=== PATIENT | male | born 1950 | race African-American/Black ===

== ENCOUNTER 2021-04-21 14:27 | Inpatient (IN) ==
[2021-04-21] MEDS ORDERED: Ondansetron ODT 4 mg TAB 4 MG TAB PO ONE (14:42)
[2021-04-21 16:42] LABS: ABS Lymphocytes 0.1 10^3/ul (1.0-4.8); ABS Monocytes 0.4 10^3/ul (0-0.8); ABS Neutrophils 10.6 10^3/ul (1.5-7.7); Hematocrit 39 % (42-52); Hemoglobin 11.4 g/dL (14.0-18.0); Lymphocyte % 0.8 %; Mean Corpuscular HGB Conc 29 g/dL (31-36); Mean Corpuscular Hemoglobin 32 pg (27-31); Mean Corpuscular Volume 109 fL (80-94); Mean Platelet Volume 10.6 fL (7.4-10.4); Platelet Count 266 10^3/uL (150-450); Red Blood Count 3.61 10^6 /uL (4.18-5.48); Red Cell Distribution Width 21 % (10-15); White Blood Count 11.1 10^3/uL (3.5-10.8)
[2021-04-21 16:43] LABS: Albumin 2.9 g/dL (3.2-5.2); Calcium 8.4 mg/dL (8.6-10.3); Potassium 4.9 mmol/L (3.5-5.0); Total Bilirubin 0.7 mg/dL (0.2-1.0)
[2021-04-21 16:49] LABS: Albumin/Globulin Ratio 0.6 (1-3); Globulin 5.1 g/dL (2-4); eGFR CKD-EPI 32.5 (>60)
[2021-04-21] MEDS ORDERED: Clindamycin 900 MG/D5W BAG 900 MG/50 ML BAG IVPB ONE (16:49)
[2021-04-21] MEDS ORDERED: NS 0.9% 1000 ml BAG 1,000 ML IV ONE (16:54)
[2021-04-21] MEDS ORDERED: Lactated Ringers 1000 ml BAG 1,000 ML IV ONE (17:34)
[2021-04-21] MEDS ORDERED: Insulin Infusion 100unit/100mL 100 UNIT/100 ML BAG IV ONE (17:36)
[2021-04-21 17:51] LABS: Venous Bicarbonate HCO3 19.3 mmol/L (24-28)
[2021-04-21] MEDS ORDERED: Dextrose 50% Syringe 50 ml 25 GM/50 ML SYRINGE IV PUSH PRN (18:49)
[2021-04-21 18:53] LABS: Magnesium 3.1 mg/dL (1.9-2.7)
[2021-04-21] MEDS ORDERED: Acetaminophen PED 160 mg/5 ml UDC PO PRN (18:53)
[2021-04-21] MEDS ORDERED: Albuterol HFA INHALER 8 gm MDI INH PRN (18:53)
[2021-04-21] MEDS ORDERED: Polyethylene Glycol 3350 BTL 238 GM BTL PO PRN (18:53)
[2021-04-21 18:59] LABS: Phosphorus 3.3 mg/dL (2.5-5.0)
[2021-04-21] MEDS ORDERED: Polyethylene Glycol 3350 17 GM PACKET PO PRN (19:01)
[2021-04-21 20:37] LABS: PCO2 Arterial 31 mmHg (35-45); PO2 Arterial 86 mmHg (80-100)
[2021-04-21] MEDS ORDERED: Carbidopa/Levodop 25/100 MG TAB PO SCH (21:00)
[2021-04-21] MEDS ORDERED: Insulin Infusion 100unit/100mL 100 UNIT/100 ML BAG IV SCH (22:00)
[2021-04-21 22:10] LABS: Creatine Kinase 49 U/L (10-223)
[2021-04-21 22:15] LABS: Troponin I 1.04 ng/mL (<0.03)
[2021-04-21] MEDS: GLUTAMINE PO SCH (22:36)
[2021-04-21] MEDS: [UNRECOGNIZED DRUG - OTHER] PO SCH (22:36)
[2021-04-21] MEDS: NON FORMULARY MED (Menthol-Zinc Oxide [Calmoseptine] 0.44-20.6 % Ointment) TOPICAL SCH (22:36)
[2021-04-21] MEDS: ARGININE PO SCH (22:36)
[2021-04-21 22:37] LABS: CO2 Carbon Dioxide 18 mmol/L (22-32); Calcium 7.7 mg/dL (8.6-10.3); Chloride 97 mmol/L (101-111); Sodium 125 mmol/L (135-145)
[2021-04-21 22:38] LABS: Glucose 1089 mg/dL (70-100)
[2021-04-21 22:44] LABS: TSH Ultra Thyroid Stim Horm 1.24 mcIU/mL (0.34-5.60)
[2021-04-21 22:48] LABS: Urine Appearance Cloudy; Urine Bilirubin Negative (Negative); Urine Blood Negative (Negative); Urine Color Yellow; Urine Glucose 3+(>=500 mg/dL) (Negative); Urine Ketones Negative (Negative); Urine Nitrite Negative (Negative); Urine Protein Negative (Negative); Urine Specific Gravity 1.018 (1.002-1.030); Urine Urobilinogen Negative (Negative)
[2021-04-21 22:59] LABS: Blood Urea Nitrogen 215 mg/dL (6-24)
[2021-04-21 23:07] LABS: Anion Gap 10 mmol/L (2-11)
[2021-04-21 23:08] LABS: Glucose Confirmatory 1089 mg/dL (70-100)
[2021-04-21] MEDS: Enoxaparin 30 MG/0.3 ML SYR SUBCUT SCH (23:20)
[2021-04-21 23:22] LABS: Glucose Confirmatory 1072 mg/dL (70-100)
[2021-04-21 23:23] LABS: Phosphorus 3.1 mg/dL (2.5-5.0)
[2021-04-21] MEDS: Lactated Ringers 1000 ml BAG 1,000 ML IV SCH (23:29)
[2021-04-22 00:22] LABS: Glucose Confirmatory 943 mg/dL (70-100)
[2021-04-22 01:28] LABS: Glucose Confirmatory 919 mg/dL (70-100)
[2021-04-22 02:14] LABS: Anion Gap 11 mmol/L (2-11); CO2 Carbon Dioxide 20 mmol/L (22-32); Calcium 7.6 mg/dL (8.6-10.3); Chloride 98 mmol/L (101-111); Magnesium 2.8 mg/dL (1.9-2.7); Phosphorus 3.3 mg/dL (2.5-5.0); Potassium 4.2 mmol/L (3.5-5.0); Sodium 129 mmol/L (135-145); eGFR CKD-EPI 31.3 (>60)
[2021-04-22 02:31] LABS: Blood Urea Nitrogen 206 mg/dL (6-24)
[2021-04-22 02:32] LABS: Glucose 897 mg/dL (70-100); Glucose Confirmatory 897 mg/dL (70-100)
[2021-04-22 03:15] LABS: Troponin I 1.13 ng/mL (<0.03)
[2021-04-22 03:26] LABS: Glucose Confirmatory 816 mg/dL (70-100)
[2021-04-22 04:10] LABS: Troponin I 1.09 ng/mL (<0.03)
[2021-04-22 04:33] LABS: Glucose Confirmatory 779 mg/dL (70-100)
[2021-04-22 05:29] LABS: Glucose Confirmatory 723 mg/dL (70-100)
[2021-04-22] MEDS ORDERED: Piperacillin/Tazobac ADVAN 3.375 GM in NS 0.9% 100 ml BAG 100 ML IV ONE (05:34)
[2021-04-22 05:45] LABS: ABS Lymphocytes 0.1 10^3/ul (1.0-4.8); ABS Monocytes 0.5 10^3/ul (0-0.8); ABS Neutrophils 16.9 10^3/ul (1.5-7.7); Hematocrit 29 % (42-52); Hemoglobin 8.9 g/dL (14.0-18.0); Lymphocyte % 0.8 %; Mean Corpuscular HGB Conc 31 g/dL (31-36); Mean Corpuscular Hemoglobin 31 pg (27-31); Mean Corpuscular Volume 100 fL (80-94); Platelet Count 270 10^3/uL (150-450); Red Blood Count 2.87 10^6 /uL (4.18-5.48); Red Cell Distribution Width 19 % (10-15); White Blood Count 17.6 10^3/uL (3.5-10.8)
[2021-04-22] MEDS ORDERED: Zosyn per Pharmacy NOTE FOLLOW UP SCH (06:00)
[2021-04-22 06:03] LABS: Anion Gap 11 mmol/L (2-11); CO2 Carbon Dioxide 22 mmol/L (22-32); Chloride 100 mmol/L (101-111); Magnesium 2.9 mg/dL (1.9-2.7); Potassium 4.2 mmol/L (3.5-5.0); Sodium 133 mmol/L (135-145)
[2021-04-22 06:09] LABS: Phosphorus 3.3 mg/dL (2.5-5.0); eGFR CKD-EPI 31.3 (>60)
[2021-04-22 06:17] LABS: Glucose 669 mg/dL (70-100)
[2021-04-22] MEDS: Lactated Ringers 1000 ml BAG 1,000 ML IV SCH ×2 (06:43→14:19)
[2021-04-22 06:53] LABS: Folate > 20.00 ng/mL (5.90-24.80)
[2021-04-22 06:54] LABS: Vitamin B12 > 1450 pg/mL (180-914)
[2021-04-22] MEDS: ARGININE PO SCH ×2 (07:17→22:56)
[2021-04-22] MEDS: NON FORMULARY MED (Menthol-Zinc Oxide [Calmoseptine] 0.44-20.6 % Ointment) TOPICAL SCH ×2 (07:17→23:00)
[2021-04-22] MEDS: GLUTAMINE PO SCH ×2 (07:17→22:56)
[2021-04-22] MEDS: [UNRECOGNIZED DRUG - OTHER] PO SCH ×2 (07:17→22:56)
[2021-04-22] MEDS ORDERED: Polyethylene Glycol 3350 17 GM PACKET PEG TUBE PRN (07:19)
[2021-04-22 07:26] LABS: Glucose Confirmatory 611 mg/dL (70-100)
[2021-04-22] MEDS: Carbidopa/Levodop 25/100 MG TAB PEG TUBE SCH ×3 (07:27→22:57)
[2021-04-22 07:37] LABS: Blood Urea Nitrogen 204 mg/dL (6-24)
[2021-04-22 08:06] LABS: Glucose Confirmatory 574 mg/dL (70-100)
[2021-04-22] MEDS: Fluticasone NASAL SPRAY 50MCG 16 gm SPRAY BTL INTRANASAL SCH (08:08)
[2021-04-22] MEDS ORDERED: HONEY TOPICAL SCH (09:00)
[2021-04-22] MEDS ORDERED: Pantoprazole VIAL 40 MG VIAL IV SCH (09:00)
[2021-04-22 09:09] LABS: Glucose Confirmatory 501 mg/dL (70-100)
[2021-04-22 10:15] LABS: Calcium 7.8 mg/dL (8.6-10.3); Magnesium 2.7 mg/dL (1.9-2.7); Potassium 3.8 mmol/L (3.5-5.0); eGFR CKD-EPI 32.9 (>60)
[2021-04-22] MEDS: ZOSYN 3.375 GM Q8H per EXTENDED INFUSION IV SCH ×2 (10:43→16:57)
[2021-04-22 11:07] LABS: Glucose Confirmatory 403 mg/dL (70-100)
[2021-04-22] MEDS ORDERED: Perflutren Lipid Microsphere 3 ML VIAL ONE (12:57)
[2021-04-22 13:50] LABS: Calcium 7.6 mg/dL (8.6-10.3); Magnesium 2.6 mg/dL (1.9-2.7); Phosphorus 2.8 mg/dL (2.5-5.0); Potassium 3.8 mmol/L (3.5-5.0); eGFR CKD-EPI 34.2 (>60)
[2021-04-22] MEDS ORDERED: Potassium Chloride LIQUID 20 MEQ/15 ML LIQUID PO ONE (14:22)
[2021-04-22] MEDS ORDERED: Insulin GLARGINE 100 un/ml 10 ml VIAL SUBCUT SCH (18:00)
[2021-04-22 18:09] LABS: Calcium 7.7 mg/dL (8.6-10.3); Magnesium 2.6 mg/dL (1.9-2.7); Phosphorus 2.6 mg/dL (2.5-5.0); Potassium 4.7 mmol/L (3.5-5.0)
[2021-04-22] MEDS: Insulin GLARGINE 100 un/ml 10 ml VIAL SUBCUT SCH (18:14)
[2021-04-22 18:24] LABS: Hematocrit 27 % (42-52); Hemoglobin 8.4 g/dL (14.0-18.0); Mean Corpuscular HGB Conc 32 g/dL (31-36); Mean Corpuscular Hemoglobin 31 pg (27-31); Mean Corpuscular Volume 96 fL (80-94); Mean Platelet Volume 9.6 fL (7.4-10.4); Platelet Count 284 10^3/uL (150-450); Red Blood Count 2.75 10^6 /uL (4.18-5.48); Red Cell Distribution Width 18 % (10-15); White Blood Count 17.6 10^3/uL (3.5-10.8)
[2021-04-22] MEDS ORDERED: Pantoprazole VIAL 40 MG VIAL IV ONE (19:00)
[2021-04-22] MEDS ORDERED: Dextrose 50% Syringe 50 ml 25 GM/50 ML SYRINGE IV PUSH PRN (20:39)
[2021-04-22] MEDS: Pantoprazole 80 mg in NS BAG 80 MG/250 ML BAG IV SCH (22:43)
[2021-04-22] MEDS: Enoxaparin 30 MG/0.3 ML SYR SUBCUT SCH (22:56)
[2021-04-23] MEDS: ZOSYN 3.375 GM Q8H per EXTENDED INFUSION IV SCH ×3 (02:49→18:02)
[2021-04-23 05:35] LABS: ABS Lymphocytes 0.3 10^3/ul (1.0-4.8); ABS Monocytes 0.7 10^3/ul (0-0.8); ABS Neutrophils 14.4 10^3/ul (1.5-7.7); Corrected Retic Count 1.4 % (0.5-1.5); Hematocrit 26 % (42-52); Hematocrit for Retic CNT 26 % (42-52); Hemoglobin 8.3 g/dL (14.0-18.0); Immature Retic Fraction 0.52; Mean Corpuscular HGB Conc 32 g/dL (31-36); Mean Corpuscular Hemoglobin 31 pg (27-31); Mean Corpuscular Volume 97 fL (80-94); Mean Platelet Volume 10.1 fL (7.4-10.4); Nucleated Red Blood Cells % 0.1; Platelet Count 256 10^3/uL (150-450); RBC Retic Count 2.66 10^6/uL (4.18-5.48); Red Blood Count 2.66 10^6 /uL (4.18-5.48); Red Cell Distribution Width 18 % (10-15); White Blood Count 15.4 10^3/uL (3.5-10.8)
[2021-04-23 05:56] LABS: Albumin 2.6 g/dL (3.2-5.2); Albumin/Globulin Ratio 0.6 (1-3); Calcium 7.9 mg/dL (8.6-10.3); Globulin 4.3 g/dL (2-4); Magnesium 2.7 mg/dL (1.9-2.7); Phosphorus 3.6 mg/dL (2.5-5.0); Total Bilirubin 0.7 mg/dL (0.2-1.0); Total Protein 6.9 g/dL (6.4-8.9); eGFR CKD-EPI 29.1 (>60)
[2021-04-23 06:09] LABS: Potassium 5.2 mmol/L (3.5-5.0)
[2021-04-23 06:25] LABS: Ferritin 698.3 ng/mL (24-336)
[2021-04-23] MEDS: Carbidopa/Levodop 25/100 MG TAB PEG TUBE SCH ×3 (09:19→20:06)
[2021-04-23] MEDS: Fluticasone NASAL SPRAY 50MCG 16 gm SPRAY BTL INTRANASAL SCH (09:20)
[2021-04-23] MEDS ORDERED: Lactated Ringers 1000 ml BAG 1,000 ML IV ONE (09:34)
[2021-04-23] MEDS: Pantoprazole VIAL 40 MG VIAL IV SCH ×2 (09:37→20:06)
[2021-04-23] MEDS: NON FORMULARY MED (Menthol-Zinc Oxide [Calmoseptine] 0.44-20.6 % Ointment) TOPICAL SCH ×2 (10:10→20:08)
[2021-04-23] MEDS ORDERED: Midazolam 2 mg/2 ml VIAL 1 mg/ml 2 ml VIAL (2 mg) ONE (11:21)
[2021-04-23] MEDS ORDERED: Midazolam 2 mg/2 ml VIAL 1 mg/ml 2 ml VIAL (2 mg) IV SLOW PU ONE (11:44)
[2021-04-23] MEDS: Pantoprazole 80 mg in NS BAG 80 MG/250 ML BAG IV SCH (12:50)
[2021-04-23] MEDS ORDERED: Lorazepam PYXIS KEY PRN (12:55)
[2021-04-23] MEDS ORDERED: LORazepam 2 mg VIAL 1 ml IV PUSH PRN (12:55)
[2021-04-23] MEDS ORDERED: Lorazepam PYXIS KEY ONE (13:00)
[2021-04-23] MEDS ORDERED: LORazepam 2 mg VIAL 1 ml ONE (13:01)
[2021-04-23] MEDS ORDERED: Heparin 1,000 UNIT/ML 10 ml (10,000 UNITS) CATHLAB/DIALYSIS DIALYSIS ONE (14:00)
[2021-04-23 14:07] LABS: Hepatitis B Surface Antigen Nonreactive (Nonreactive)
[2021-04-23 14:24] LABS: Hepatitis B Surface Ab Not Immune (Immune)
[2021-04-23] MEDS ORDERED: Desmopressin Acetate 20 MCG in NS 0.9% 50 ML 50 ML IVPB ONE (16:00)
[2021-04-23] MEDS: Insulin GLARGINE 100 un/ml 10 ml VIAL SUBCUT SCH (18:16)
[2021-04-23] MEDS: Enoxaparin 30 MG/0.3 ML SYR SUBCUT SCH (20:07)
[2021-04-23 20:32] LABS: Calcium 7.6 mg/dL (8.6-10.3); Magnesium 2.4 mg/dL (1.9-2.7); Phosphorus 3.4 mg/dL (2.5-5.0); eGFR CKD-EPI 41.3 (>60)
[2021-04-24] MEDS: ZOSYN 3.375 GM Q8H per EXTENDED INFUSION IV SCH ×2 (01:57→09:48)
[2021-04-24 04:28] LABS: ABS Lymphocytes 0.2 10^3/ul (1.0-4.8); ABS Monocytes 0.4 10^3/ul (0-0.8); ABS Neutrophils 7.7 10^3/ul (1.5-7.7); Hematocrit 24 % (42-52); Hemoglobin 7.8 g/dL (14.0-18.0); Mean Corpuscular HGB Conc 32 g/dL (31-36); Mean Corpuscular Hemoglobin 31 pg (27-31); Mean Corpuscular Volume 97 fL (80-94); Mean Platelet Volume 9.8 fL (7.4-10.4); Platelet Count 242 10^3/uL (150-450); Red Blood Count 2.48 10^6 /uL (4.18-5.48); Red Cell Distribution Width 19 % (10-15); White Blood Count 8.3 10^3/uL (3.5-10.8)
[2021-04-24 04:44] LABS: Calcium 7.6 mg/dL (8.6-10.3); Magnesium 2.5 mg/dL (1.9-2.7); Phosphorus 3.8 mg/dL (2.5-5.0); Potassium 4.2 mmol/L (3.5-5.0)
[2021-04-24] MEDS: Pantoprazole VIAL 40 MG VIAL IV SCH ×2 (08:08→20:03)
[2021-04-24] MEDS: Carbidopa/Levodop 25/100 MG TAB PEG TUBE SCH ×3 (08:09→20:03)
[2021-04-24] MEDS: Fluticasone NASAL SPRAY 50MCG 16 gm SPRAY BTL INTRANASAL SCH (08:10)
[2021-04-24] MEDS: NON FORMULARY MED (Menthol-Zinc Oxide [Calmoseptine] 0.44-20.6 % Ointment) TOPICAL SCH ×2 (08:11→20:31)
[2021-04-24] MEDS ORDERED: Heparin *DIALYSIS* ONLY 1,000 UNITS/ML VIAL DIALYSIS ONE (15:00)
[2021-04-24] MEDS: Insulin GLARGINE 100 un/ml 10 ml VIAL SUBCUT SCH (17:38)
[2021-04-24] MEDS ORDERED: Insulin GLARGINE 100 un/ml 10 ml VIAL SUBCUT SCH (21:00)
[2021-04-24] MEDS: ZOSYN 3.375 GM Q12H per EXTENDED INFUSION IV SCH (22:53)
[2021-04-25 01:03] LABS: Hematocrit 28 % (42-52); Hemoglobin 9.2 g/dL (14.0-18.0); Mean Corpuscular HGB Conc 33 g/dL (31-36); Mean Corpuscular Hemoglobin 31 pg (27-31); Mean Corpuscular Volume 94 fL (80-94); Platelet Count 269 10^3/uL (150-450); Red Blood Count 2.94 10^6 /uL (4.18-5.48); Red Cell Distribution Width 20 % (10-15); White Blood Count 12.8 10^3/uL (3.5-10.8)
[2021-04-25 05:30] LABS: Hematocrit 28 % (42-52); Hemoglobin 9.1 g/dL (14.0-18.0); Mean Corpuscular HGB Conc 33 g/dL (31-36); Mean Corpuscular Hemoglobin 31 pg (27-31); Mean Corpuscular Volume 94 fL (80-94); Mean Platelet Volume 9.9 fL (7.4-10.4); Platelet Count 243 10^3/uL (150-450); Red Blood Count 2.94 10^6 /uL (4.18-5.48); Red Cell Distribution Width 20 % (10-15); White Blood Count 11.5 10^3/uL (3.5-10.8)
[2021-04-25 05:50] LABS: Calcium 7.3 mg/dL (8.6-10.3); Magnesium 2.2 mg/dL (1.9-2.7); Phosphorus 2.8 mg/dL (2.5-5.0); Potassium 3.3 mmol/L (3.5-5.0)
[2021-04-25] MEDS: Insulin GLARGINE 100 un/ml 10 ml VIAL SUBCUT SCH ×2 (05:59→17:28)
[2021-04-25] MEDS: Carbidopa/Levodop 25/100 MG TAB PEG TUBE SCH ×3 (09:44→20:11)
[2021-04-25] MEDS: NON FORMULARY MED (Menthol-Zinc Oxide [Calmoseptine] 0.44-20.6 % Ointment) TOPICAL SCH ×2 (09:45→20:12)
[2021-04-25] MEDS: Fluticasone NASAL SPRAY 50MCG 16 gm SPRAY BTL INTRANASAL SCH (09:45)
[2021-04-25] MEDS: ZOSYN 3.375 GM Q12H per EXTENDED INFUSION IV SCH ×2 (09:45→21:58)
[2021-04-25] MEDS: Pantoprazole VIAL 40 MG VIAL IV SCH ×2 (09:45→10:17)
[2021-04-25 15:11] LABS: % Iron Saturation 13 % (14 - 50); Total Iron Binding Capacity 192 mcg/dL (250 - 400)
[2021-04-26 05:37] LABS: ABS Lymphocytes 0.2 10^3/ul (1.0-4.8); ABS Monocytes 0.6 10^3/ul (0-0.8); ABS Neutrophils 10.7 10^3/ul (1.5-7.7); Eosinophil % 0.2 %; Hematocrit 28 % (42-52); Hemoglobin 9.1 g/dL (14.0-18.0); Mean Corpuscular HGB Conc 33 g/dL (31-36); Mean Corpuscular Hemoglobin 31 pg (27-31); Mean Corpuscular Volume 94 fL (80-94); Mean Platelet Volume 9.8 fL (7.4-10.4); Platelet Count 251 10^3/uL (150-450); Red Blood Count 2.94 10^6 /uL (4.18-5.48); Red Cell Distribution Width 20 % (10-15); White Blood Count 11.6 10^3/uL (3.5-10.8)
[2021-04-26 05:50] LABS: Calcium 7.5 mg/dL (8.6-10.3); Potassium 3.2 mmol/L (3.5-5.0); eGFR CKD-EPI 42.2 (>60)
[2021-04-26] MEDS: Insulin GLARGINE 100 un/ml 10 ml VIAL SUBCUT SCH ×2 (06:17→17:53)
[2021-04-26] MEDS: Pantoprazole VIAL 40 MG VIAL IV SCH (08:36)
[2021-04-26] MEDS: Carbidopa/Levodop 25/100 MG TAB PEG TUBE SCH ×3 (08:46→20:19)
[2021-04-26] MEDS: ZOSYN 3.375 GM Q12H per EXTENDED INFUSION IV SCH ×2 (08:46→22:59)
[2021-04-26] MEDS: Fluticasone NASAL SPRAY 50MCG 16 gm SPRAY BTL INTRANASAL SCH (08:53)
[2021-04-26] MEDS: NON FORMULARY MED (Menthol-Zinc Oxide [Calmoseptine] 0.44-20.6 % Ointment) TOPICAL SCH ×2 (08:53→20:19)
[2021-04-26] MEDS ORDERED: KCL 20 MEQ/100 ML IVPREMIX 20 MEQ/100 ML BAG IV SCH (18:00)
[2021-04-27 04:57] LABS: ABS Eosinophils 0.1 10^3/ul (0-0.6); ABS Lymphocytes 0.2 10^3/ul (1.0-4.8); ABS Monocytes 0.7 10^3/ul (0-0.8); ABS Neutrophils 11.3 10^3/ul (1.5-7.7); Eosinophil % 0.5 %; Hematocrit 28 % (42-52); Hemoglobin 9.2 g/dL (14.0-18.0); Lymphocyte % 1.9 %; Mean Corpuscular HGB Conc 32 g/dL (31-36); Mean Corpuscular Hemoglobin 31 pg (27-31); Mean Corpuscular Volume 95 fL (80-94); Platelet Count 245 10^3/uL (150-450); Red Blood Count 2.99 10^6 /uL (4.18-5.48); Red Cell Distribution Width 20 % (10-15); White Blood Count 12.3 10^3/uL (3.5-10.8)
[2021-04-27 05:12] LABS: Calcium 7.5 mg/dL (8.6-10.3); Potassium 3.2 mmol/L (3.5-5.0); eGFR CKD-EPI 40.5 (>60)
[2021-04-27] MEDS: Insulin GLARGINE 100 un/ml 10 ml VIAL SUBCUT SCH ×2 (06:58→17:33)
[2021-04-27] MEDS: Pantoprazole VIAL 40 MG VIAL IV SCH (08:33)
[2021-04-27] MEDS: Fluticasone NASAL SPRAY 50MCG 16 gm SPRAY BTL INTRANASAL SCH (08:33)
[2021-04-27] MEDS: Carbidopa/Levodop 25/100 MG TAB PEG TUBE SCH ×3 (08:33→22:44)
[2021-04-27] MEDS: ZOSYN 3.375 GM Q12H per EXTENDED INFUSION IV SCH ×2 (08:33→22:41)
[2021-04-27] MEDS: NON FORMULARY MED (Menthol-Zinc Oxide [Calmoseptine] 0.44-20.6 % Ointment) TOPICAL SCH ×2 (08:33→22:11)
[2021-04-27] MEDS ORDERED: Potassium Chlor 20 meq TAB.ER PO SCH (09:00)
[2021-04-27] MEDS ORDERED: Potassium Chloride LIQUID 20 MEQ/15 ML LIQUID PEG TUBE SCH (09:00)
[2021-04-27] MEDS ORDERED: Bumetanide IV 0.25 MG/ML 4 ml VIAL (1 mg) SLOW PUSH ONE (10:37)
[2021-04-27] MEDS ORDERED: Potassium Chloride LIQUID 20 MEQ/15 ML LIQUID PO SCH (15:00)
[2021-04-27] MEDS: Heparin 5000 UNITS/ML 1 mL VIAL SUBCUT SCH (22:44)
[2021-04-27] MEDS: Bumetanide IV 0.25 MG/ML 4 ml VIAL (1 mg) SLOW PUSH SCH (22:46)
[2021-04-27 23:05] LABS: Calcium 7.7 mg/dL (8.6-10.3); Magnesium 2.2 mg/dL (1.9-2.7); Potassium 3.4 mmol/L (3.5-5.0); eGFR CKD-EPI 37.5 (>60)
[2021-04-27 23:26] LABS: TSH Ultra Thyroid Stim Horm 1.97 mcIU/mL (0.34-5.60)
[2021-04-28] MEDS: KCL 10 MEQ/50 ML IVPREMIX 10 MEQ/50 ML BAG IV SCH ×3 (01:00→04:10)
[2021-04-28] MEDS: Insulin GLARGINE 100 un/ml 10 ml VIAL SUBCUT SCH ×2 (06:00→17:32)
[2021-04-28 06:09] LABS: Hematocrit 26 % (42-52); Hemoglobin 8.8 g/dL (14.0-18.0); Mean Corpuscular HGB Conc 33 g/dL (31-36); Mean Corpuscular Hemoglobin 32 pg (27-31); Mean Corpuscular Volume 95 fL (80-94); Mean Platelet Volume 9.6 fL (7.4-10.4); Platelet Count 253 10^3/uL (150-450); Red Blood Count 2.77 10^6 /uL (4.18-5.48); Red Cell Distribution Width 20 % (10-15); White Blood Count 10.7 10^3/uL (3.5-10.8)
[2021-04-28 06:29] LABS: Calcium 7.3 mg/dL (8.6-10.3); Magnesium 2.1 mg/dL (1.9-2.7); Phosphorus 3.3 mg/dL (2.5-5.0); Potassium 3.6 mmol/L (3.5-5.0); eGFR CKD-EPI 39.7 (>60)
[2021-04-28] MEDS: NON FORMULARY MED (Menthol-Zinc Oxide [Calmoseptine] 0.44-20.6 % Ointment) TOPICAL SCH ×2 (09:40→22:56)
[2021-04-28] MEDS: ZOSYN 3.375 GM Q12H per EXTENDED INFUSION IV SCH ×2 (10:00→22:24)
[2021-04-28] MEDS: Pantoprazole VIAL 40 MG VIAL IV SCH (10:02)
[2021-04-28] MEDS: Bumetanide IV 0.25 MG/ML 4 ml VIAL (1 mg) SLOW PUSH SCH ×2 (10:03→22:29)
[2021-04-28] MEDS: Heparin 5000 UNITS/ML 1 mL VIAL SUBCUT SCH ×2 (10:04→22:29)
[2021-04-28] MEDS: Carbidopa/Levodop 25/100 MG TAB PEG TUBE SCH ×3 (10:04→22:29)
[2021-04-28] MEDS: Potassium Chloride LIQUID 20 MEQ/15 ML LIQUID PO SCH (10:04)
[2021-04-28] MEDS: Fluticasone NASAL SPRAY 50MCG 16 gm SPRAY BTL INTRANASAL SCH (10:42)
[2021-04-29] MEDS: Insulin GLARGINE 100 un/ml 10 ml VIAL SUBCUT SCH ×2 (05:55→18:17)
[2021-04-29 06:25] LABS: ABS Eosinophils 0.1 10^3/ul (0-0.6); ABS Lymphocytes 0.4 10^3/ul (1.0-4.8); ABS Monocytes 0.8 10^3/ul (0-0.8); ABS Neutrophils 9.3 10^3/ul (1.5-7.7); Eosinophil % 0.5 %; Hematocrit 27 % (42-52); Hemoglobin 8.8 g/dL (14.0-18.0); Lymphocyte % 3.9 %; Mean Corpuscular HGB Conc 33 g/dL (31-36); Mean Corpuscular Hemoglobin 31 pg (27-31); Mean Corpuscular Volume 96 fL (80-94); Mean Platelet Volume 9.4 fL (7.4-10.4); Platelet Count 249 10^3/uL (150-450); Red Blood Count 2.81 10^6 /uL (4.18-5.48); Red Cell Distribution Width 21 % (10-15); White Blood Count 10.6 10^3/uL (3.5-10.8)
[2021-04-29 06:42] LABS: Calcium 7.6 mg/dL (8.6-10.3); Potassium 3.8 mmol/L (3.5-5.0); eGFR CKD-EPI 34.6 (>60)
[2021-04-29] MEDS: Carbidopa/Levodop 25/100 MG TAB PEG TUBE SCH ×3 (10:16→21:32)
[2021-04-29] MEDS: Pantoprazole VIAL 40 MG VIAL IV SCH (10:16)
[2021-04-29] MEDS: Heparin 5000 UNITS/ML 1 mL VIAL SUBCUT SCH ×2 (10:16→21:31)
[2021-04-29] MEDS: Potassium Chloride LIQUID 20 MEQ/15 ML LIQUID PO SCH (10:16)
[2021-04-29] MEDS: NON FORMULARY MED (Menthol-Zinc Oxide [Calmoseptine] 0.44-20.6 % Ointment) TOPICAL SCH ×2 (10:17→21:32)
[2021-04-29] MEDS: Nystatin TOP POWDER 15 GM BTL TOPICAL SCH ×3 (12:14→23:23)
[2021-04-29] MEDS: Fluticasone NASAL SPRAY 50MCG 16 gm SPRAY BTL INTRANASAL SCH (15:17)
[2021-04-30 05:35] LABS: ABS Lymphocytes 0.4 10^3/ul (1.0-4.8); ABS Monocytes 0.6 10^3/ul (0-0.8); ABS Neutrophils 6.8 10^3/ul (1.5-7.7); Eosinophil % 0.6 %; Hematocrit 27 % (42-52); Hemoglobin 8.7 g/dL (14.0-18.0); Lymphocyte % 4.9 %; Mean Corpuscular HGB Conc 32 g/dL (31-36); Mean Corpuscular Hemoglobin 31 pg (27-31); Mean Corpuscular Volume 97 fL (80-94); Mean Platelet Volume 9.3 fL (7.4-10.4); Nucleated Red Blood Cells % 0.1; Platelet Count 226 10^3/uL (150-450); Red Blood Count 2.79 10^6 /uL (4.18-5.48); Red Cell Distribution Width 21 % (10-15); White Blood Count 7.9 10^3/uL (3.5-10.8)
[2021-04-30 05:59] LABS: Calcium 7.7 mg/dL (8.6-10.3); Potassium 4.2 mmol/L (3.5-5.0); eGFR CKD-EPI 34.4 (>60)
[2021-04-30] MEDS: NON FORMULARY MED (Menthol-Zinc Oxide [Calmoseptine] 0.44-20.6 % Ointment) TOPICAL SCH ×2 (07:04→22:05)
[2021-04-30] MEDS: Heparin 5000 UNITS/ML 1 mL VIAL SUBCUT SCH ×2 (09:41→22:17)
[2021-04-30] MEDS: Carbidopa/Levodop 25/100 MG TAB PEG TUBE SCH ×3 (09:41→22:17)
[2021-04-30] MEDS: Fluticasone NASAL SPRAY 50MCG 16 gm SPRAY BTL INTRANASAL SCH ×2 (09:41→09:54)
[2021-04-30] MEDS: Pantoprazole VIAL 40 MG VIAL IV SCH (09:41)
[2021-04-30] MEDS: Insulin GLARGINE 100 un/ml 10 ml VIAL SUBCUT SCH (09:54)
[2021-04-30] MEDS: Nystatin TOP POWDER 15 GM BTL TOPICAL SCH ×2 (09:54→22:18)
[2021-04-30] MEDS: Bumetanide IV 0.25 MG/ML 4 ml VIAL (1 mg) SLOW PUSH SCH (22:16)
[2021-05-01 06:30] LABS: ABS Lymphocytes 0.5 10^3/ul (1.0-4.8); ABS Monocytes 0.5 10^3/ul (0-0.8); ABS Neutrophils 6.3 10^3/ul (1.5-7.7); Eosinophil % 0.5 %; Hematocrit 27 % (42-52); Hemoglobin 8.7 g/dL (14.0-18.0); Lymphocyte % 6.2 %; Mean Corpuscular HGB Conc 32 g/dL (31-36); Mean Corpuscular Hemoglobin 31 pg (27-31); Mean Corpuscular Volume 97 fL (80-94); Mean Platelet Volume 9.2 fL (7.4-10.4); Nucleated Red Blood Cells % 0.1; Platelet Count 229 10^3/uL (150-450); Red Cell Distribution Width 20 % (10-15); White Blood Count 7.3 10^3/uL (3.5-10.8)
[2021-05-01 06:37] LABS: Potassium 4.1 mmol/L (3.5-5.0)
[2021-05-01 06:42] LABS: eGFR CKD-EPI 35.9 (>60)
[2021-05-01] MEDS: Pantoprazole VIAL 40 MG VIAL IV SCH (10:08)
[2021-05-01] MEDS: Carbidopa/Levodop 25/100 MG TAB PEG TUBE SCH ×2 (10:09→13:01)
[2021-05-01] MEDS: Bumetanide IV 0.25 MG/ML 4 ml VIAL (1 mg) SLOW PUSH SCH (10:09)
[2021-05-01] MEDS: Insulin GLARGINE 100 un/ml 10 ml VIAL SUBCUT SCH (10:09)
[2021-05-01] MEDS: Heparin 5000 UNITS/ML 1 mL VIAL SUBCUT SCH (10:09)
[2021-05-01] MEDS: Nystatin TOP POWDER 15 GM BTL TOPICAL SCH (10:10)
[2021-05-01] MEDS: NON FORMULARY MED (Menthol-Zinc Oxide [Calmoseptine] 0.44-20.6 % Ointment) TOPICAL SCH (10:10)
[2021-05-01] MEDS: Fluticasone NASAL SPRAY 50MCG 16 gm SPRAY BTL INTRANASAL SCH (10:10)
[2021-05-01 15:53] LABS: Rapid COVID-19 Molecular Detected (Undetected)
[2021-05-01 16:52] VITALS: BP 131/81
== END 2021-05-01 15:40 | DRG 177 ==
LOC: ED 14:27 → EDHOLD 17:48 → SUATTDRO 17:48 → ICU 21:53 → SSU 04-27 19:46
PROVIDERS: ADMIT Internal Medicine; ATTEND Student in an Organized Health Care Education/Training Program

== ENCOUNTER 2021-05-11 12:12 | Inpatient (IN) ==
[2021-05-11 13:36] LABS: ABS Basophils 0.1 10^3/ul (0-0.2); ABS Lymphocytes 0.6 10^3/ul (1.0-4.8); ABS Monocytes 0.7 10^3/ul (0-0.8); ABS Neutrophils 15.4 10^3/ul (1.5-7.7); Eosinophil % 0.1 %; Hematocrit 36 % (42-52); Hemoglobin 11.2 g/dL (14.0-18.0); Lymphocyte % 3.7 %; Mean Corpuscular HGB Conc 32 g/dL (31-36); Mean Corpuscular Hemoglobin 31 pg (27-31); Mean Corpuscular Volume 99 fL (80-94); Mean Platelet Volume 9.4 fL (7.4-10.4); Platelet Count 378 10^3/uL (150-450); Red Blood Count 3.62 10^6 /uL (4.18-5.48); Red Cell Distribution Width 20 % (10-15); White Blood Count 16.9 10^3/uL (3.5-10.8)
[2021-05-11 13:44] LABS: Venous Bicarbonate HCO3 35.7 mmol/L (24-28)
[2021-05-11] MEDS ORDERED: Cefepime 2 GM IV - ED ONCE IV ONE (13:46)
[2021-05-11] MEDS ORDERED: Cefepime 2 GM in NS 0.9% 50 ML 50 ML IVPB ONE (13:46)
[2021-05-11] MEDS ORDERED: Levofloxacin 750 MG IVPREMIX 750 MG/150 ML BAG IVPB ONE (13:46)
[2021-05-11] MEDS ORDERED: Lactated Ringers 1000 ml BAG 1,000 ML IV ONE (13:46)
[2021-05-11 13:49] LABS: Urine Appearance Clear; Urine Bilirubin Negative (Negative); Urine Blood 2+ (Negative); Urine Color Amber; Urine Glucose Negative (Negative); Urine Ketones Negative (Negative); Urine Nitrite Negative (Negative); Urine Protein 2+(100 mg/dL) (Negative); Urine Specific Gravity 1.013 (1.002-1.030); Urine Urobilinogen Negative (Negative)
[2021-05-11 13:51] LABS: INR 1.46 (0.86-1.15)
[2021-05-11 14:03] LABS: Urine Bacteria Absent (Absent); Urine Red Blood Cell 2+(6-10/hpf) (Absent); Urine Squamous Epithelial Cell Present (Absent); Urine White Blood Cell 3+(>20/hpf) (Absent)
[2021-05-11] MEDS ORDERED: NS 0.9% 50 ML 50 ML ONE (14:06)
[2021-05-11 14:09] LABS: ALT 30 U/L (7-52); AST 50 U/L (13-39); Albumin 2.7 g/dL (3.2-5.2); Albumin/Globulin Ratio 0.5 (1-3); Alkaline Phosphatase 141 U/L (35-149); C Reactive Protein 148.01 mg/L (<8.01); CO2 Carbon Dioxide 37 mmol/L (22-32); Calcium 9.3 mg/dL (8.6-10.3); Chloride 111 mmol/L (101-111); Glucose 260 mg/dL (70-100); Total Protein 8.7 g/dL (6.4-8.9); eGFR CKD-EPI 29.8 (>60)
[2021-05-11 14:46] LABS: Anion Gap 8 mmol/L (2-11); Blood Urea Nitrogen 181 mg/dL (6-24); Sodium 156 mmol/L (135-145)
[2021-05-11] MEDS ORDERED: Acetaminophen PED 160 mg/5 ml UDC FEED TUBE PRN (15:57)
[2021-05-11] MEDS ORDERED: Albuterol HFA INHALER 8 gm MDI INH PRN (15:57)
[2021-05-11] MEDS ORDERED: Dextrose 50% Syringe 50 ml 25 GM/50 ML SYRINGE IV PUSH PRN (15:59)
[2021-05-11] MEDS ORDERED: D5W 1/2 NS 1000 ml BAG 1,000 ML IV SCH (16:00)
[2021-05-11] MEDS: Enoxaparin 30 MG/0.3 ML SYR SUBCUT SCH (16:41)
[2021-05-11 17:27] LABS: Magnesium 2.5 mg/dL (1.9-2.7); Phosphorus 1.8 mg/dL (2.5-5.0)
[2021-05-11] MEDS ORDERED: Potassium Phosphate IV 30 MMOLE in NS 0.9% 250 ml 250 ML IVPB ONE (17:49)
[2021-05-11] MEDS ORDERED: ZOSYN 3.375 GM x ONE DOSE over 30 miuntes IV ×2 (18:00)
[2021-05-11] MEDS ORDERED: Zosyn per Pharmacy NOTE FOLLOW UP SCH (18:00)
[2021-05-11 18:57] LABS: CO2 Carbon Dioxide 34 mmol/L (22-32); Calcium 9.1 mg/dL (8.6-10.3); Glucose 315 mg/dL (70-100); eGFR CKD-EPI 30.3 (>60)
[2021-05-11 19:01] LABS: Anion Gap 7 mmol/L (2-11); Chloride 112 mmol/L (101-111); Sodium 153 mmol/L (135-145)
[2021-05-11 19:04] LABS: Troponin I 0.57 ng/mL (<0.03)
[2021-05-11 19:18] LABS: Blood Urea Nitrogen 174 mg/dL (6-24)
[2021-05-11] MEDS: Carbidopa/Levodop 25/100 MG TAB FEED TUBE SCH (20:23)
[2021-05-11] MEDS ORDERED: NS 0.45% 1000 ml BAG 1,000 ML IV SCH (21:00)
[2021-05-11] MEDS: Insulin GLARGINE 100 un/ml 10 ml VIAL SUBCUT SCH (22:29)
[2021-05-11] MEDS: ZOSYN 3.375 GM Q8H per EXTENDED INFUSION IV SCH (23:52)
[2021-05-12 01:00] LABS: Urine Creatinine Concentration 31.78 mg/dL; Urine Sodium Concentration < 18 mmol/L
[2021-05-12 01:35] LABS: Calcium 8.9 mg/dL (8.6-10.3); Potassium 3.8 mmol/L (3.5-5.0); eGFR CKD-EPI 30.9 (>60)
[2021-05-12] MEDS: DOXYcycline 100 MG in NS 0.9% 250 ml 250 ML IVPB SCH ×2 (03:48→16:26)
[2021-05-12 06:34] LABS: ABS Basophils 0.1 10^3/ul (0-0.2); ABS Lymphocytes 0.4 10^3/ul (1.0-4.8); ABS Monocytes 0.6 10^3/ul (0-0.8); Hematocrit 34 % (42-52); Hemoglobin 10.3 g/dL (14.0-18.0); Lymphocyte % 2.3 %; Mean Corpuscular HGB Conc 31 g/dL (31-36); Mean Corpuscular Hemoglobin 30 pg (27-31); Mean Corpuscular Volume 99 fL (80-94); Mean Platelet Volume 8.7 fL (7.4-10.4); Platelet Count 350 10^3/uL (150-450); Red Blood Count 3.42 10^6 /uL (4.18-5.48); Red Cell Distribution Width 20 % (10-15); White Blood Count 17.1 10^3/uL (3.5-10.8)
[2021-05-12 07:03] LABS: Calcium 8.8 mg/dL (8.6-10.3); Potassium 4.2 mmol/L (3.5-5.0); eGFR CKD-EPI 28.9 (>60)
[2021-05-12] MEDS ORDERED: D5W 1000 ml BAG 1,000 ML IV SCH ×2 (08:00)
[2021-05-12] MEDS: ZOSYN 3.375 GM Q8H per EXTENDED INFUSION IV SCH ×4 (08:00→23:35)
[2021-05-12] MEDS ORDERED: Insulin GLARGINE 100 un/ml 10 ml VIAL SUBCUT SCH (09:00)
[2021-05-12] MEDS: Carbidopa/Levodop 25/100 MG TAB FEED TUBE SCH ×3 (10:44→22:55)
[2021-05-12] MEDS: Fluticasone NASAL SPRAY 50MCG 16 gm SPRAY BTL INTRANASAL SCH (12:12)
[2021-05-12 12:34] LABS: Calcium 8.8 mg/dL (8.6-10.3); Potassium 4.2 mmol/L (3.5-5.0)
[2021-05-12] MEDS: Enoxaparin 30 MG/0.3 ML SYR SUBCUT SCH (15:46)
[2021-05-12] MEDS ORDERED: Albumin Human 25% 25 GM/100 ML BTL IV ONE (15:59)
[2021-05-12] MEDS ORDERED: NS 0.45% 1000 ml BAG 500 ML IV SCH (16:00)
[2021-05-12 17:36] LABS: Calcium 8.4 mg/dL (8.6-10.3); Potassium 4.2 mmol/L (3.5-5.0); eGFR CKD-EPI 27.2 (>60)
[2021-05-12] MEDS: Insulin GLARGINE 100 un/ml 10 ml VIAL SUBCUT SCH (22:57)
[2021-05-13 00:34] LABS: Calcium 8.1 mg/dL (8.6-10.3); Potassium 3.7 mmol/L (3.5-5.0); eGFR CKD-EPI 26.1 (>60)
[2021-05-13] MEDS: DOXYcycline 100 MG in NS 0.9% 250 ml 250 ML IVPB SCH ×2 (03:57→15:11)
[2021-05-13 06:31] LABS: Hematocrit 29 % (42-52); Hemoglobin 9.2 g/dL (14.0-18.0); Mean Corpuscular HGB Conc 31 g/dL (31-36); Mean Corpuscular Hemoglobin 30 pg (27-31); Mean Corpuscular Volume 97 fL (80-94); Mean Platelet Volume 9.2 fL (7.4-10.4); Platelet Count 239 10^3/uL (150-450); Red Blood Count 3.03 10^6 /uL (4.18-5.48); Red Cell Distribution Width 20 % (10-15); White Blood Count 16.3 10^3/uL (3.5-10.8)
[2021-05-13 06:51] LABS: Calcium 8.3 mg/dL (8.6-10.3); Magnesium 2.2 mg/dL (1.9-2.7); Phosphorus 3.7 mg/dL (2.5-5.0); Potassium 3.4 mmol/L (3.5-5.0); eGFR CKD-EPI 26.3 (>60)
[2021-05-13] MEDS ORDERED: Potassium Chloride LIQUID 20 MEQ/15 ML LIQUID PEG TUBE ONE (07:22)
[2021-05-13] MEDS: ZOSYN 3.375 GM Q8H per EXTENDED INFUSION IV SCH ×2 (08:35→17:38)
[2021-05-13] MEDS: Carbidopa/Levodop 25/100 MG TAB FEED TUBE SCH ×3 (08:35→22:26)
[2021-05-13] MEDS: Fluticasone NASAL SPRAY 50MCG 16 gm SPRAY BTL INTRANASAL SCH (08:36)
[2021-05-13] MEDS ORDERED: Ondansetron 4 mg VIAL 2 MG/ML 2 ml VIAL IV PRN (16:27)
[2021-05-13] MEDS ORDERED: Atropine 1% (ORAL/SL) 15 ML BTL SL PRN (16:27)
[2021-05-13] MEDS: Enoxaparin 30 MG/0.3 ML SYR SUBCUT SCH (16:29)
[2021-05-13] MEDS: Morphine ORAL CONCENTRATE 5 MG/0.25 ML ORAL.SYRIN PO PRN (17:38)
[2021-05-13] MEDS ORDERED: Insulin GLARGINE 100 un/ml 10 ml VIAL SUBCUT SCH (21:00)
[2021-05-14] MEDS: ZOSYN 3.375 GM Q8H per EXTENDED INFUSION IV SCH ×2 (00:32→08:30)
[2021-05-14] MEDS: DOXYcycline 100 MG in NS 0.9% 250 ml 250 ML IVPB SCH (04:08)
[2021-05-14 07:50] VITALS: BP 113/67
[2021-05-14] MEDS: Carbidopa/Levodop 25/100 MG TAB FEED TUBE SCH (08:30)
[2021-05-14] MEDS: Fluticasone NASAL SPRAY 50MCG 16 gm SPRAY BTL INTRANASAL SCH (08:30)
[2021-05-14] MEDS: Morphine ORAL CONCENTRATE 5 MG/0.25 ML ORAL.SYRIN PO PRN ×2 (10:55→12:42)
== END 2021-05-14 14:30 | DRG 871 ==
LOC: ED 12:12 → SUATTDRO 15:58 → EDHOLD 15:58 → MED 17:16
PROVIDERS: ADMIT Internal Medicine; ATTEND Internal Medicine